=== PATIENT | male | born 1985 | race Caucasian/White ===

== ENCOUNTER 2016-02-25 21:59 | Emergency (ER) | payer OTHER ==
[~2016-02-25] VITALS: Ht 172.7 cm; Wt 68.0 kg
[2016-02-25 21:59] VITALS: BP 124/71
[2016-02-25] MEDS ORDERED: IBUPROFEN 600 MG TABLET PO ONE ×2 (23:30→23:40)
== END 2016-02-25 23:56 | disposition home or self-care (01) ==
LOC: ER 21:59
DX: S52.531A Colles' fracture of right radius, initial encounter for closed fracture (principal); W18.30XA Fall on same level, unspecified, initial encounter; Y93.64 Activity, baseball; Y92.89 Other specified places as the place of occurrence of the external cause; Y99.8 Other external cause status
CPT/HCPCS: 73110; A4606; L3763; Z7610